=== PATIENT | male | born 1950 | race Caucasian/White ===

== ENCOUNTER 2018-08-25 06:58 | Day surgery (SDC) | payer OTHER ==
[2018-08-24 14:41] VITALS: BMI 37.8
[2018-08-25 08:36] VITALS: TEMP 97.8
[2018-08-25 09:20] VITALS: BP 112/65; PULSE 70
--- NOTE | 2018-08-26 10:03 | PATH ---
Surgical Pathology Report Patient Name: KRUPA ARANGO [facility]. Rec. #: [id number] /Age/Gender: 1950 (Age: 68) / M Account: [id number] Location: [facility]-ENDOSCOPY Taken: 08/25/2018 Received: 08/25/2018 Reported: 08/26/2018 Physicians: Trevon Valerio M.D. Specimen(s) Received POLYP RECTO SIGMOID Clinical History History of colon polyps Postoperative diagnosis: Colon polyp, diverticulosis Final Diagnosis RECTOSIGMOID COLON, POLYP, BIOPSY: HYPERPLASTIC POLYP. Electronically Signed Jeanine Reynolds M.D. Gross Description Received in formalin, labeled "rectosigmoid polyp" are 2 atkinson, irregular portions of soft tissue measuring 0.2 and 0.3 cm. in greatest dimension. The specimens are submitted in toto in one cassette. 08/25/201808/25/2018
== END 2018-08-25 09:21 | disposition home or self-care (01) ==
LOC: JASU-ENDO 06:58
PROVIDERS: ATTEND Internal Medicine Gastroenterology
PROC: 0DBN8ZX Excision of Sigmoid Colon, Via Natural or Artificial Opening Endoscopic, Diagnostic (ICD-10-PCS; principal; 2018-08-25 08:00)
DX: Z12.11 Encounter for screening for malignant neoplasm of colon (principal); Z86.010 Personal history of colon polyps; D12.7 Benign neoplasm of rectosigmoid junction; K57.30 Diverticulosis of large intestine without perforation or abscess without bleeding; E11.9 Type 2 diabetes mellitus without complications; I10 Essential (primary) hypertension; Z79.84 Long term (current) use of oral hypoglycemic drugs
CPT/HCPCS: 88305-TC

== ENCOUNTER 2023-07-24 10:39 | Emergency (ER) | payer OTHER ==
[2023-07-24 10:45] VITALS: TEMP 98; BMI 33.7
[2023-07-24 11:34] VITALS: RESP 20
[2023-07-24 12:26] LABS: BASO % 0.2 % (0-2.0); EOS % 0.9 % (0-4.5); HEMATOCRIT 46.1 % (35.4-49); HEMOGLOBIN 15.8 GM/dL (11.7-16.9); LYMPH % 20.9 % (8-40); MCH 27.8 pg (25.7-33.7); MCHC 34.3 g/dl (32.0-35.9); MEAN CELL VOLUME 81.1 fl (80-96); MEAN PLT VOLUME 8.5 fl (7.5-11.1); PLATELET COUNT 236 10^3/uL (134-434); RBC 5.68 M/mm3 (4.00-5.60); RDW 15.1 % (11.9-15.9); WHITE BLOOD COUNT 6.7 K/mm3 (4.0-10.0)
[2023-07-24 12:27] LABS: INR 1.06 (0.83-1.09); PROTHROMBIN TIME (PATIENT) 12.3 SEC (9.7-13.0)
[2023-07-24 12:30] LABS: ACTIVATED PTT 29.6 SECONDS (25.2-36.5)
[2023-07-24 13:15] LABS: EPI CELLS 18 /uL (0-25.1); HYALINE CASTS 2 /uL (0-3.1); PH,URINE 5.5 (5.0-8.0); URINE APPEARANCE CLEAR; URINE BACTERIA 2 /uL (0-1359); URINE BILIRUBIN NEGATIVE (NEGATIVE); URINE COLOR YELLOW; URINE GLUCOSE (UA) NEGATIVE (NEGATIVE); URINE KETONE NEGATIVE (NEGATIVE); URINE LEUK ESTERASE NEGATIVE (NEGATIVE); URINE NITRITE NEGATIVE (NEGATIVE); URINE PROTEIN TRACE (NEGATIVE); URINE RBC 66 /uL (0-23.9); URINE UROBILINOGEN 0.2 mg/dL (0.2-1.0); URINE WBC 25 /uL (0-25.8)
[2023-07-24 13:19] LABS: POTASSIUM 3.6 mmol/L (3.5-5.1)
[2023-07-24 13:22] LABS: ALBUMIN 4.1 g/dl (3.4-5.0); CALCIUM 9.4 mg/dL (8.5-10.1)
[2023-07-24 13:23] LABS: BLOOD UREA NITROGEN 21.4 mg/dL (7-18); MAGNESIUM 2.3 mg/dL (1.8-2.4)
[2023-07-24 13:26] LABS: CREATININE 1.7 mg/dL (0.55-1.3)
[2023-07-24 13:28] LABS: BILIRUBIN,TOTAL 1.6 mg/dL (0.2-1); TOT PROT 7.5 g/dl (6.4-8.2)
[2023-07-24] MEDS ORDERED: SODIUM CHLORIDE 0.9% 500 ML INFUS.BAG IV ONE (15:18)
[2023-07-24 17:37] VITALS: BP 146/92; PULSE 75
== END 2023-07-24 17:39 | disposition home or self-care (01) ==
LOC: JER 10:39
DX: R53.1 Weakness (principal); R09.02 Hypoxemia; R63.0 Anorexia; R53.83 Other fatigue; G47.00 Insomnia, unspecified; R91.1 Solitary pulmonary nodule; Z20.822 Contact with and (suspected) exposure to COVID-19
CPT/HCPCS: 0241U-QW; 36415; 71045-TC-FY; 71275-TC; 74177-TC; 80053; 81003; 83735; 84436; 84439; 84443; 84484; 85025; 85610; 85730; 87086; 93005; 93010; 99285-25; Q9967

== ENCOUNTER 2024-05-18 04:47 | Inpatient (IN) | payer OTHER ==
[2024-05-18] MEDS ORDERED: DEXAMETHASONE SOD PHOSPHATE 10 MG/1 ML VIAL ONE (05:55)
[2024-05-18] MEDS ORDERED: ACETAMINOPHEN INJECTION 100 ML ONE (05:55)
[2024-05-18] MEDS: ACETAMINOPHEN 1000 MG/100 ML BAG IVPB ONE ×2 (06:00→18:39)
[2024-05-18] MEDS: DEXAMETHASONE SOD PHOSPHATE 10 MG/1 ML VIAL IVPUSH ONE (06:00)
[2024-05-18 06:09] LABS: BASO % 0.2 % (0-2.0); HEMATOCRIT 45.5 % (35.4-49); HEMOGLOBIN 15.9 GM/dL (11.7-16.9); MCH 29.5 pg (25.7-33.7); MCHC 34.9 g/dl (32.0-35.9); MEAN CELL VOLUME 84.4 fl (80-96); MEAN PLT VOLUME 7.8 fl (7.5-11.1); MONO % 4.3 % (3.8-10.2); NEUT % 86.5 % (42.8-82.8); PLATELET COUNT 208 10^3/uL (134-434); RBC 5.39 M/mm3 (4.00-5.60); RDW 15.1 % (11.9-15.9); WHITE BLOOD COUNT 11.7 K/mm3 (4.0-10.0)
[2024-05-18 06:24] LABS: INR 0.99 (0.83-1.09); PROTHROMBIN TIME (PATIENT) 11.4 SEC (9.7-13.0)
[2024-05-18 06:27] LABS: ACTIVATED PTT 27.9 SECONDS (25.2-36.5)
[2024-05-18] MEDS: morphine SULFATE 4 MG/ML VIAL IVPUSH ONE (06:31)
[2024-05-18] MEDS ORDERED: morphine SULFATE 4 MG/ML VIAL ONE ×2 (06:33→07:20)
[2024-05-18 06:49] LABS: POTASSIUM 3.4 mmol/L (3.5-5.1)
[2024-05-18 06:51] LABS: CALCIUM 9.7 mg/dL (8.5-10.1)
[2024-05-18 06:52] LABS: ALBUMIN 4.3 g/dl (3.4-5.0); BLOOD UREA NITROGEN 20.3 mg/dL (7-18)
[2024-05-18 06:55] LABS: CREATININE 1.2 mg/dL (0.55-1.3)
[2024-05-18 06:57] LABS: TOT PROT 7.4 g/dl (6.4-8.2)
[2024-05-18] MEDS: morphine CARPU-JECT 4 MG/1 ML DISP.SYRIN IVPUSH ONE (07:34)
[2024-05-18 08:18] LABS: PH,URINE 6.5 (5.0-8.0); URINE APPEARANCE CLEAR; URINE BILIRUBIN NEGATIVE (NEGATIVE); URINE COLOR YELLOW; URINE GLUCOSE (UA) NEGATIVE (NEGATIVE); URINE KETONE NEGATIVE (NEGATIVE); URINE LEUK ESTERASE NEGATIVE (NEGATIVE); URINE NITRITE NEGATIVE (NEGATIVE); URINE PROTEIN TRACE (NEGATIVE); URINE UROBILINOGEN 0.2 mg/dL (0.2-1.0)
[2024-05-18 08:20] LABS: EPI CELLS 14 /uL (0-25.1); HYALINE CASTS 1 /uL (0-3.1); URINE BACTERIA 12 /uL (0-1359); URINE RBC 16 /uL (0-23.9); URINE WBC 7 /uL (0-25.8)
[2024-05-18] MEDS ORDERED: LIDOCAINE 4% PATCH TP ONE (08:59)
[2024-05-18] MEDS: LIDOCAINE 4% PATCH TP ONE (09:00)
[2024-05-18] MEDS: morphine SULFATE 4 MG/ML VIAL IVPUSH PRN (16:08)
[2024-05-18] MEDS: INSULIN ASPART SLIDING SCALE (NOVOLOG) 1 VIAL SQ SCH (18:38)
[2024-05-18] MEDS: CARVEDILOL 12.5 MG TABLET (FP) PO SCH (21:59)
[2024-05-18] MEDS: clonazePAM 0.5 MG TABLET PO PRN (21:59)
[2024-05-18] MEDS: LIDOCAINE PATCH REMOVAL MC SCH (22:07)
[2024-05-19] MEDS: FLUoxetine HCL 20 MG CAPSULE PO SCH (09:22)
[2024-05-19] MEDS: ATORVASTATIN CA 80 MG TABLET (FP) PO SCH (09:22)
[2024-05-19 09:51] LABS: HEMATOCRIT 47.5 % (35.4-49); HEMOGLOBIN 16.1 GM/dL (11.7-16.9); MCH 28.8 pg (25.7-33.7); MEAN CELL VOLUME 84.7 fl (80-96); MEAN PLT VOLUME 8.2 fl (7.5-11.1); MONO % 7.3 % (3.8-10.2); NEUT % 84.7 % (42.8-82.8); PLATELET COUNT 263 10^3/uL (134-434); RBC 5.61 M/mm3 (4.00-5.60); WHITE BLOOD COUNT 16.2 K/mm3 (4.0-10.0)
[2024-05-19 10:05] LABS: POTASSIUM 3.4 mmol/L (3.5-5.1)
[2024-05-19 10:11] LABS: ALBUMIN 4.1 g/dl (3.4-5.0); BLOOD UREA NITROGEN 19.4 mg/dL (7-18); CALCIUM 9.5 mg/dL (8.5-10.1)
[2024-05-19 10:14] LABS: PHOSPHOROUS 2.4 mg/dL (2.5-4.9)
[2024-05-19 10:16] LABS: BILIRUBIN,TOTAL 3.1 mg/dL (0.2-1); MAGNESIUM 2.4 mg/dL (1.8-2.4); TOT PROT 7.1 g/dl (6.4-8.2)
[2024-05-19] MEDS: GABAPENTIN 100 MG CAPSULE PO SCH (13:20)
[2024-05-19] MEDS ORDERED: INSULIN ASPART SLIDING SCALE (NOVOLOG) 1 VIAL SQ ONE (22:21)
[2024-05-20] MEDS: LIDOCAINE 5% TOPICAL PATCH TP SCH (09:24)
[2024-05-20] MEDS: DEXAMETHASONE SOD PHOSPHATE 4 MG/1 ML VIAL IVPUSH SCH (09:24)
[2024-05-20 09:38] LABS: HEMATOCRIT 48.1 % (35.4-49); HEMOGLOBIN 16.5 GM/dL (11.7-16.9); MCH 28.9 pg (25.7-33.7); MCHC 34.3 g/dl (32.0-35.9); MEAN CELL VOLUME 84.5 fl (80-96); MEAN PLT VOLUME 7.8 fl (7.5-11.1); PLATELET COUNT 269 10^3/uL (134-434); RDW 15.2 % (11.9-15.9); WHITE BLOOD COUNT 14.4 K/mm3 (4.0-10.0)
[2024-05-20 10:02] LABS: POTASSIUM 3.4 mmol/L (3.5-5.1)
[2024-05-20 10:06] LABS: ALBUMIN 4.1 g/dl (3.4-5.0); BLOOD UREA NITROGEN 26.9 mg/dL (7-18); CALCIUM 9.7 mg/dL (8.5-10.1); MAGNESIUM 2.7 mg/dL (1.8-2.4)
[2024-05-20 10:10] LABS: CREATININE 1.1 mg/dL (0.55-1.3); PHOSPHOROUS 2.8 mg/dL (2.5-4.9)
[2024-05-20 10:11] LABS: TOT PROT 7.1 g/dl (6.4-8.2)
[2024-05-20] MEDS: KETOROLAC TROMETHAMINE 30 MG/1 ML VIAL IVPUSH PRN (11:25)
[2024-05-20] MEDS ORDERED: INSULIN ASPART SLIDING SCALE (NOVOLOG) 1 VIAL SQ ONE (16:46)
[2024-05-20] MEDS: POTASSIUM CHLORIDE ORAL LIQUID 20 MEQ/15 ML PO ONE (16:53)
[2024-05-20] MEDS: NAPH,MB-DB/K PH,MBDB POWDER PACKET PO SCH (16:53)
[2024-05-20] MEDS: LOSARTAN POTASSIUM 25 MG TABLET PO SCH (16:53)
[2024-05-20] MEDS: LIDOCAINE PATCH REMOVAL MC SCH (20:59)
[2024-05-21 10:09] LABS: POTASSIUM 3.8 mmol/L (3.5-5.1)
[2024-05-21 10:13] LABS: BLOOD UREA NITROGEN 34.3 mg/dL (7-18); CALCIUM 9.7 mg/dL (8.5-10.1); MAGNESIUM 2.9 mg/dL (1.8-2.4)
[2024-05-21 10:16] LABS: CREATININE 1.1 mg/dL (0.55-1.3); PHOSPHOROUS 3.3 mg/dL (2.5-4.9)
[2024-05-21 10:17] LABS: BILIRUBIN,TOTAL 2.8 mg/dL (0.2-1)
[2024-05-21 10:18] LABS: TOT PROT 7.1 g/dl (6.4-8.2)
[2024-05-21] MEDS: clonazePAM 2 MG TABLET PO SCH (11:42)
[2024-05-21] MEDS ORDERED: INSULIN ASPART SLIDING SCALE (NOVOLOG) 1 VIAL SQ ONE (12:22)
[2024-05-22 21:27] LABS: EPI CELLS 4 /uL (0-25.1); HYALINE CASTS 1 /uL (0-3.1); PH,URINE 5.5 (5.0-8.0); URINE APPEARANCE CLEAR; URINE BACTERIA 6 /uL (0-1359); URINE BILIRUBIN NEGATIVE (NEGATIVE); URINE COLOR YELLOW; URINE GLUCOSE (UA) NEGATIVE (NEGATIVE); URINE KETONE NEGATIVE (NEGATIVE); URINE LEUK ESTERASE NEGATIVE (NEGATIVE); URINE NITRITE NEGATIVE (NEGATIVE); URINE PROTEIN NEGATIVE (NEGATIVE); URINE RBC 2993 /uL (0-23.9); URINE WBC 20 /uL (0-25.8)
[2024-05-22] MEDS: ATORVASTATIN CA 80 MG TABLET (FP) PO SCH (23:00)
[2024-05-23 09:15] LABS: HEMATOCRIT 45.1 % (35.4-49); HEMOGLOBIN 15.6 GM/dL (11.7-16.9); LYMPH % 5.4 % (8-40); MCH 29.4 pg (25.7-33.7); MCHC 34.6 g/dl (32.0-35.9); MEAN CELL VOLUME 84.8 fl (80-96); MEAN PLT VOLUME 8.2 fl (7.5-11.1); MONO % 4.3 % (3.8-10.2); NEUT % 90.3 % (42.8-82.8); PLATELET COUNT 227 10^3/uL (134-434); RBC 5.31 M/mm3 (4.00-5.60); RDW 14.6 % (11.9-15.9); WHITE BLOOD COUNT 11.8 K/mm3 (4.0-10.0)
[2024-05-23 09:30] LABS: POTASSIUM 4.1 mmol/L (3.5-5.1)
[2024-05-23 09:40] LABS: ALBUMIN 3.3 g/dl (3.4-5.0)
[2024-05-23 09:42] LABS: BLOOD UREA NITROGEN 44.2 mg/dL (7-18)
[2024-05-23 09:44] LABS: BILIRUBIN,TOTAL 2.5 mg/dL (0.2-1); CREATININE 1.1 mg/dL (0.55-1.3)
[2024-05-24] MEDS: SACUBITRIL/VALSARTAN 24 MG-26 MG TABLET PO SCH (09:12)
[2024-05-24] MEDS ORDERED: INSULIN ASPART SLIDING SCALE (NOVOLOG) 1 VIAL SQ ONE ×2 (11:15→17:03)
[2024-05-24] MEDS: KETOROLAC TROMETHAMINE 30 MG/1 ML VIAL IVPUSH PRN (16:28)
[2024-05-25] MEDS ORDERED: INSULIN ASPART SLIDING SCALE (NOVOLOG) 1 VIAL SQ ONE ×2 (10:55→16:55)
[2024-05-25] MEDS: morphine SULFATE 4 MG/ML VIAL IVPUSH ONE (13:45)
[2024-05-26] MEDS: morphine SULFATE 4 MG/ML VIAL IM PRN (10:18)
[2024-05-27] MEDS ORDERED: BUPIVACAINE HCL/PF 0.5% (5MG/ML) 10 ML VIAL ONE (12:30)
[2024-05-27] MEDS ORDERED: ceFAZolin SODIUM 1 GM VIAL ONE ×2 (12:30→14:31)
[2024-05-27] MEDS ORDERED: PROPOFOL 80 ML ONE (13:12)
[2024-05-27] MEDS ORDERED: HYDROmorphone HCl 2 MG/ML VIAL ONE (13:12)
[2024-05-27 13:13] LABS: HEMATOCRIT 48.5 % (35.4-49); HEMOGLOBIN 16.2 GM/dL (11.7-16.9); MCH 28.9 pg (25.7-33.7); MCHC 33.5 g/dl (32.0-35.9); MEAN CELL VOLUME 86.4 fl (80-96); MEAN PLT VOLUME 8.4 fl (7.5-11.1); PLATELET COUNT 250 10^3/uL (134-434); RBC 5.61 M/mm3 (4.00-5.60); RDW 14.7 % (11.9-15.9); WHITE BLOOD COUNT 19.7 K/mm3 (4.0-10.0)
[2024-05-27] MEDS ORDERED: DEXAMETHASONE SOD PHOSPHATE 4 MG/1 ML VIAL ONE ×2 (13:13→15:01)
[2024-05-27] MEDS ORDERED: SUGAMMADEX SODIUM 200 MG/2 ML VIAL ONE (13:13)
[2024-05-27] MEDS ORDERED: ROCURONIUM BROMIDE 50 MG/5 ML SYRINGE ONE (13:13)
[2024-05-27] MEDS ORDERED: LIDOCAINE HCL/PF 2% SDV 5ML VIAL ONE (13:13)
[2024-05-27] MEDS ORDERED: MIDAZOLAM HCL 2 MG/2 ML SINGLE DOSE VIAL ONE (13:13)
[2024-05-27] MEDS ORDERED: ONDANSETRON 4 MG/2 ML VIAL ONE (13:13)
[2024-05-27 13:34] LABS: POTASSIUM 5.1 mmol/L (3.5-5.1)
[2024-05-27 13:36] LABS: ALBUMIN 3.2 g/dl (3.4-5.0)
[2024-05-27 13:38] LABS: BLOOD UREA NITROGEN 46.6 mg/dL (7-18); CALCIUM 9.9 mg/dL (8.5-10.1); MAGNESIUM 2.6 mg/dL (1.8-2.4)
[2024-05-27 13:39] LABS: PHOSPHOROUS 3.7 mg/dL (2.5-4.9)
[2024-05-27 13:41] LABS: TOT PROT 6.3 g/dl (6.4-8.2)
[2024-05-27 13:44] LABS: BILIRUBIN,TOTAL 1.6 mg/dL (0.2-1)
[2024-05-27] MEDS ORDERED: SUCCINYLCHOLINE CHLORIDE 200 MG/10 ML SYRINGE ONE (14:08)
[2024-05-27] MEDS: ceFAZolin SODIUM 1 GM VIAL IVPB ONE (14:40)
[2024-05-27] MEDS ORDERED: PROPOFOL 20 ML ONE ×2 (14:46→16:17)
[2024-05-27] MEDS ORDERED: PROPOFOL 40 ML ONE (15:01)
[2024-05-27] MEDS ORDERED: ONDANSETRON 4 MG/2 ML VIAL IVPUSH PRN (15:29)
[2024-05-27] MEDS ORDERED: LACTATED RINGERS SOLUTION 1,000 ML IV SCH (15:30)
[2024-05-27] MEDS ORDERED: PROPOFOL 60 ML ONE (16:17)
[2024-05-27] MEDS: LACTATED RINGERS SOLUTION 1,000 ML IV SCH (19:30)
[2024-05-27] MEDS: SACUBITRIL/VALSARTAN 24 MG-26 MG TABLET PO SCH (21:52)
[2024-05-27] MEDS: CEFAZOLIN 1 GM in DEXTROSE 5%-WATER - 50 ML IVPB SCH (21:52)
[2024-05-27] MEDS: ATORVASTATIN CA 80 MG TABLET (FP) PO SCH (21:53)
[2024-05-27] MEDS: CARVEDILOL 12.5 MG TABLET (FP) PO SCH (21:53)
[2024-05-28] MEDS: morphine SULFATE 4 MG/ML VIAL IM PRN (00:14)
[2024-05-28 10:10] LABS: HEMATOCRIT 42.7 % (35.4-49); HEMOGLOBIN 14.3 GM/dL (11.7-16.9); MCHC 33.4 g/dl (32.0-35.9); MEAN CELL VOLUME 86.8 fl (80-96); MEAN PLT VOLUME 8.4 fl (7.5-11.1); PLATELET COUNT 244 10^3/uL (134-434); RBC 4.92 M/mm3 (4.00-5.60); RDW 14.7 % (11.9-15.9); WHITE BLOOD COUNT 26.9 K/mm3 (4.0-10.0)
[2024-05-28 10:43] LABS: POTASSIUM 4.9 mmol/L (3.5-5.1)
[2024-05-28 10:47] LABS: ALBUMIN 2.7 g/dl (3.4-5.0); BLOOD UREA NITROGEN 43.3 mg/dL (7-18)
[2024-05-28 10:49] LABS: CREATININE 1.1 mg/dL (0.55-1.3)
[2024-05-28 10:51] LABS: BILIRUBIN,TOTAL 1.6 mg/dL (0.2-1); TOT PROT 5.3 g/dl (6.4-8.2)
[2024-05-28] MEDS: ENOXAPARIN NA (PORCINE) 40 MG/0.4 ML DISP.SYRIN SQ SCH (11:10)
[2024-05-28] MEDS: FLUoxetine HCL 20 MG CAPSULE PO SCH (11:11)
[2024-05-28] MEDS: clonazePAM 2 MG TABLET PO SCH (13:45)
[2024-05-28] MEDS: oxyCODONE HCL 5 MG TABLET PO PRN (22:42)
[2024-05-29 08:51] LABS: HEMATOCRIT 43.9 % (35.4-49); HEMOGLOBIN 14.5 GM/dL (11.7-16.9); MCH 28.9 pg (25.7-33.7); MCHC 33.1 g/dl (32.0-35.9); MEAN CELL VOLUME 87.3 fl (80-96); MEAN PLT VOLUME 8.6 fl (7.5-11.1); PLATELET COUNT 279 10^3/uL (134-434); RBC 5.03 M/mm3 (4.00-5.60); RDW 14.8 % (11.9-15.9)
[2024-05-29 09:09] LABS: WHITE BLOOD COUNT 33.8 K/mm3 (4.0-10.0)
[2024-05-29 09:14] LABS: POTASSIUM 4.8 mmol/L (3.5-5.1)
[2024-05-29 09:17] LABS: ALBUMIN 2.8 g/dl (3.4-5.0); CALCIUM 9.2 mg/dL (8.5-10.1); MAGNESIUM 2.4 mg/dL (1.8-2.4)
[2024-05-29 09:18] LABS: BLOOD UREA NITROGEN 43.5 mg/dL (7-18)
[2024-05-29 09:20] LABS: CREATININE 1.2 mg/dL (0.55-1.3)
[2024-05-29 09:21] LABS: BILIRUBIN,TOTAL 2.3 mg/dL (0.2-1); TOT PROT 5.6 g/dl (6.4-8.2)
[2024-05-29] MEDS: INSULIN (LEVEMIR) 100 UNITS/ML UNITS SQ SCH (09:46)
[2024-05-29 13:35] VITALS: BMI 28.5
[2024-05-29] MEDS: INSULIN ASPART SLIDING SCALE (NOVOLOG) 1 VIAL SQ SCH (15:17)
[2024-05-29] MEDS ORDERED: diphenhydrAMINE HCL 25 MG CAPSULE (FP) PO PRN (16:09)
[2024-05-29] MEDS: HALOPERIDOL LACTATE 5 MG/ML IM PRN (16:51)
[2024-05-29] MEDS: PERMETHRIN 5% TOPICAL CREAM 60 GM TUBE TP ONE (17:40)
[2024-05-29] MEDS: HYDROCORTISONE 1% TOPICAL LOTION 118 ML BOTTLE TP PRN (17:41)
[2024-05-29] MEDS: PIPERACILLIN/TAZOB 4.5 GM 4.5 GM in DEXTROSE 5%-WATER 100 ML IVPB SCH (19:59)
[2024-05-29] MEDS: VANCOMYCIN/WATER FOR INJ (PEG) 1,000 MG/200 ML BAG IVPB SCH (20:18)
[2024-05-30] MEDS ORDERED: SODIUM CHLORIDE 1,000 ML IV STA (02:00)
[2024-05-30 02:18] LABS: ARTERIAL BLD GAS O2 SATURATION 99.8 % (95-98); ARTERIAL BLOOD GAS BASE EXCESS -7.3 mmol/L (-2-2); ARTERIAL BLOOD GAS PO2 346.5 mmHg (80-100); ARTERIAL BLOOD GAS pH 7.396 (7.350-7.450)
[2024-05-30 02:20] LABS: ALLENS TEST POSITIVE
[2024-05-30] MEDS: SODIUM CHLORIDE 1,000 ML IV STA (02:31)
[2024-05-30 02:49] VITALS: BP 117/64; PULSE 117; RESP 18; TEMP 98.6
[2024-05-30 03:24] LABS: EPI CELLS 22 /uL (0-25.1); HYALINE CASTS 2 /uL (0-3.1); PH,URINE 5.5 (5.0-8.0); URINE APPEARANCE CLOUDY; URINE BACTERIA 26 /uL (0-1359); URINE BILIRUBIN NEGATIVE (NEGATIVE); URINE COLOR YELLOW; URINE GLUCOSE (UA) NEGATIVE (NEGATIVE); URINE KETONE NEGATIVE (NEGATIVE); URINE LEUK ESTERASE 1+ (NEGATIVE); URINE NITRITE NEGATIVE (NEGATIVE); URINE PROTEIN 1+ (NEGATIVE); URINE RBC 630 /uL (0-23.9); URINE WBC 80 /uL (0-25.8)
[2024-05-30] MEDS ORDERED: clonazePAM 0.5 MG TABLET PO SCH (06:00)
[2024-05-30] MEDS ORDERED: INSULIN (LEVEMIR) 100 UNITS/ML UNITS SQ SCH (08:00)
== END 2024-05-30 06:30 | disposition expired | DRG 515 ==
LOC: JER 04:47 → JERBED 10:24 → J8W 14:14
PROVIDERS: ADMIT Internal Medicine; ATTEND Internal Medicine
PROC: 4A11X4G Monitoring of Peripheral Nervous Electrical Activity, Intraoperative, External Approach (ICD-10-PCS; 2024-05-27)
PROC: 01NB0ZZ Release Lumbar Nerve, Open Approach (ICD-10-PCS; principal; 2024-05-27 12:30)
PROC: 0BH17EZ Insertion of Endotracheal Airway into Trachea, Via Natural or Artificial Opening (ICD-10-PCS; 2024-05-30)
PROC: 5A12012 Performance of Cardiac Output, Single, Manual (ICD-10-PCS; 2024-05-30)
DX: M48.061 Spinal stenosis, lumbar region without neurogenic claudication (principal); J96.90 Respiratory failure, unspecified, unspecified whether with hypoxia or hypercapnia; G95.20 Unspecified cord compression; I50.20 Unspecified systolic (congestive) heart failure; J44.9 Chronic obstructive pulmonary disease, unspecified; F31.9 Bipolar disorder, unspecified; E11.9 Type 2 diabetes mellitus without complications; E78.5 Hyperlipidemia, unspecified; I25.10 Atherosclerotic heart disease of native coronary artery without angina pectoris; Z79.4 Long term (current) use of insulin; Z95.1 Presence of aortocoronary bypass graft; E87.6 Hypokalemia; E83.39 Other disorders of phosphorus metabolism; R26.2 Difficulty in walking, not elsewhere classified; I11.0 Hypertensive heart disease with heart failure; I25.5 Ischemic cardiomyopathy; D72.829 Elevated white blood cell count, unspecified; I95.89 Other hypotension
CPT/HCPCS: 36415; 36600; 70551-TC; 71045-TC-FY; 72148-TC; 76000-TC-FY; 80053; 81003; 82550; 82803; 82962; 83735; 84100; 84443; 84484; 85025; 85027; 85610; 85651; 85730; 86140; 86850; 86900; 86901; 87040; 87086; 93005; 93010; 93306-TC; 94760; 97116-GP; 97161-GP; 99285-25; J0131; J1100